=== PATIENT | female | born 1990 | race Caucasian/White ===

== ENCOUNTER 2016-06-16 17:32 | Emergency (ER) | payer OTHER ==
[2016-06-16 19:40] VITALS: BP 119/72
--- NOTE | 2016-06-16 19:45 | UC ---
Throat Pain/Nasal Kermit HPI - HPI Summary HPI Summary: ST, nasal congestion starting yesterday. Today fever 101+ Has 3-yr-old at home. - History of Current Complaint Stated Complaint: SORE THROAT, FEVER Time Seen by Provider: 06/16/16 19:34 Hx Obtained From: Patient Hx Last Menstrual Period: IUD ?: No Onset/Duration: Gradual Onset, Lasting Days Severity: Moderate Cough: None Associated Signs & Symptoms: Positive: Nasal Discharge, Fever. Negative: Vomiting, Rash - Allergies/Home Medications Allergies/Adverse Reactions: Allergies Allergy/AdvReac Type Severity Reaction Status Date / Time Amoxicillin Allergy Rash Verified 06/16/16 19:32 Penicillins Allergy Rash Verified 06/16/16 19:32 PMH/Surg Hx/FS Hx/Imm Hx Cardiovascular History Of: Reports: Cardiac Disorders - Heart Murmur - Surgical History Surgical History: Yes Surgery Procedure, Year, and Place: eye as infant, 09/2012 - Family History Known Family History: Positive: Hypertension, Respiratory Disease - Social History Occupation: Employed Full-time Alcohol Use: Occasionally Substance Use Type: None Smoking Status (MU): Never Smoked Tobacco Review of Systems Constitutional: Fever Skin: Negative Eyes: Negative ENT: Sore Throat, Nasal Discharge Respiratory: Negative Cardiovascular: Negative Gastrointestinal: Negative Genitourinary: Negative Motor: Negative Neurovascular: Negative Musculoskeletal: Negative Neurological: Negative Psychological: Negative All Other Systems Reviewed And Are Negative: Yes Physical Exam Triage Information Reviewed: Yes Appearance: No Pain Distress, Well-Nourished Vital Signs: Initial Vital Signs Temp 97.3 F 06/16/16 19:33 Pulse 116 06/16/16 19:33 Resp 18 06/16/16 19:33 BP 119/72 06/16/16 19:33 Pulse Ox 99 06/16/16 19:33 Vital Signs Reviewed: Yes Eye Exam: Normal Eyes: Positive: Conjunctiva Clear ENT: Positive: Nasal congestion, TMs normal, Tonsillar swelling - marked, tonsils nearly touching, Tonsillar exudate, Muffled/hoarse voice Dental Exam: Normal Neck: Positive: Enlarged Nodes @ - tonsillar Respiratory Exam: Normal Respiratory: Positive: Chest non-tender, Lungs clear, Normal breath sounds, No respiratory distress, No accessory muscle use Cardiovascular: Positive: No Murmur, Tachycardia Musculoskeletal Exam: Normal Neurological Exam: Normal Psychological Exam: Normal Skin Exam: Normal Throat Pain/Nasal Course/Dx - Course Course Of Treatment: discussed clinical diagnosis via [facility] criteria, pt is comfortable with this. - Differential Dx/Diagnosis Provider Diagnoses: tonsillitis. elevated blood pressure due to discomfort Discharge - Discharge Plan Condition: Stable Disposition: HOME Prescriptions: Cephalexin CAP* [Keflex 500 CAP*] 500 mg PO BID #20 cap Patient Education Materials: Tonsillitis (ED) Referrals: No Primary Care Phys,NOPCP [Primary Care Provider] - Additional Instructions: Return here or see your PCP if you have severe or prolonged symptoms.
== END 2016-06-16 19:44 | disposition home or self-care (01) ==
LOC: UCCORT 17:32
DX: J03.90 Acute tonsillitis, unspecified (principal); R03.0 Elevated blood-pressure reading, without diagnosis of hypertension; Z88.1 Allergy status to other antibiotic agents; Z88.0 Allergy status to penicillin
CPT/HCPCS: 99212; G0463

== ENCOUNTER 2018-03-10 08:22 | Emergency (ER) | payer OTHER ==
[2018-03-10 08:50] VITALS: BP 121/81
--- NOTE | 2018-03-10 09:10 | UC ---
Skin Complaint HPI - HPI Summary HPI Summary: 27-year-old woman comes in with a chief complaint of 2 days of a rash on the mid thoracic region on the left side. It's in a dermatomal distribution. She suspects that shingles. It does itch. Nothing really makes it better or worse. No fevers or chills. Patient also notices some right flank pain and increased urinary frequency overnight. There is no rash on the right flank. Feels well otherwise. - History of Current Complaint Chief Complaint: UCSkin Time Seen by Provider: 03/10/18 09:00 Stated Complaint: SKIN COMPLAINT Hx Last Menstrual Period: 02/20/18 Pain Intensity: 2 - Allergy/Home Medications Allergies/Adverse Reactions: Allergies Allergy/AdvReac Type Severity Reaction Status Date / Time amoxicillin Allergy Unknown Rash Verified 03/10/18 08:41 Penicillins Allergy Unknown Rash Verified 03/10/18 08:41 Home Medications: Home Medications Oral Contraceptive 1 tab PO DAILY 03/10/18 [History] PMH/Surg Hx/FS Hx/Imm Hx Previously Healthy: Yes - Surgical History Surgical History: Yes Surgery Procedure, Year, and Place: eye as infant, 09/2012. LEFT KNEE ARTHOSCOPY - Family History Known Family History: Positive: Hypertension, Respiratory Disease - Social History Alcohol Use: Occasionally Substance Use Type: None Smoking Status (MU): Never Smoked Tobacco Review of Systems All Other Systems Reviewed And Are Negative: Yes Constitutional: Positive: Negative Skin: Positive: Rash Eyes: Positive: Negative ENT: Positive: Negative Respiratory: Positive: Negative Cardiovascular: Positive: Negative Gastrointestinal: Positive: Negative Genitourinary: Positive: Frequency Motor: Positive: Negative Neurovascular: Positive: Negative Musculoskeletal: Positive: Negative Neurological: Positive: Negative Psychological: Positive: Negative Is Patient Immunocompromised?: No Physical Exam Triage Information Reviewed: Yes Appearance: Well-Appearing, No Pain Distress, Well-Nourished Vital Signs: Initial Vital Signs Temp 97.9 F 03/10/18 08:42 Pulse 87 03/10/18 08:42 Resp 15 03/10/18 08:42 BP 121/81 03/10/18 08:42 Pulse Ox 100 03/10/18 08:42 Vital Signs Reviewed: Yes Eye Exam: Normal Eyes: Positive: Conjunctiva Clear Neck exam: Normal Neck: Positive: Supple Respiratory: Positive: No respiratory distress Abdomen Description: Positive: Nontender, Soft, CVA Tenderness (R). Negative: CVA Tenderness (L) Musculoskeletal Exam: Normal Musculoskeletal: Positive: Strength Intact, ROM Intact Neurological Exam: Normal Neurological: Positive: Alert, Muscle Tone Normal Psychological Exam: Normal Psychological: Positive: Age Appropriate Behavior Skin: Positive: Other - The mid thoracic area approximately T7 the level there is 2 erythematous patches in a dermatomal distribution on the left side each patch is 3-4 cm in size do not see any vesicles at this time. No drainage. Course/Dx - Course Course Of Treatment: Urinalysis did not show any evidence of urinary tract infection. At this time we will not treat for a UTI. We will treat for shingles with a rash in the thoracic area. Patient's having right flank pain also without a rash. If the rash appears then she should have shingles on that side also. We discussed if she starts getting fevers or any more urinary symptoms or the pain gets worse she should get reevaluated. Otherwise she'll take ibuprofen for the pain as needed. - Diagnoses Provider Diagnosis: Shingles, Right flank pain, Urinary frequency Discharge - Sign-Out/Discharge Documenting (check all that apply): Patient Departure All imaging exams completed and their final reports reviewed: No Studies - Discharge Plan Condition: Stable Disposition: HOME Prescriptions: Valacyclovir HCl [Valacyclovir] 1 gm PO TID #21 tab Patient Education Materials: Shingles (ED) [place]errals: [facility] [[place]] Additional Instructions: FOLLOW UP WITH YOUR DOCTOR IF NOT COMPLETELY IMPROVED. GET RECHECKED FOR ANY WORSENING OF YOUR CONDITION OR QUESTIONS OR CONCERNS. - Billing Disposition and Condition Condition: STABLE Disposition: Home
== END 2018-03-10 09:43 | disposition home or self-care (01) ==
LOC: UCCORT 08:22
DX: B02.9 Zoster without complications (principal); R10.9 Unspecified abdominal pain; Z88.0 Allergy status to penicillin; R35.0 Frequency of micturition
CPT/HCPCS: 81003; 84702; 99212; G0463